=== PATIENT | male | born 1945 | race Hispanic/Latino ===

== ENCOUNTER 2017-04-20 18:35 | Inpatient (IN) | payer MEDICARE, OTHER ==
[~2017-04-20 18:35] MED LIST: ISOVUE-370 76%-LOCM 1 ML ONE
[2017-04-20 19:12] LABS: #Lymphocytes 0.9 thou/uL (1.20-3.40); #Monocytes 0.2 thou/uL (0.11-0.59); #Neutrophils 8.8 thou/uL (1.40-6.50); %Basophils 0.1 % (0.0-1.0); %Eosinophils 0.2 % (0.0-10.0); %Lymphocytes 9.3 % (21.0-51.0); %Monocytes 2.4 % (0.0-10.0); %Neutrophils 88.1 % (42.0-75.0); Hemoglobin 16.3 g/dL (14.0-18.0); Mean Corpuscular HGB CONC 32.1 g/dL (32.0-36.0); Mean Corpuscular Hemoglobin 32.1 pg (27.0-31.0); Mean Corpuscular Volume 99.8 fl (80.0-94.0); Mean Platelet Volume 6.7 fL (7.4-10.4); Platelet Count 355 thou/uL (130-400); RBC Distribution Width 13.1 % (11.5-14.5)
[2017-04-20 19:32] LABS: ALT (SGPT) 29 U/L (8-55); AST (SGOT) 21 U/L (5-34); Albumin 4.7 g/dL (3.4-4.8); Alkaline Phosphatase 60 U/L (40-150); Anion Gap 19 mmol/L (10-20); BUN (Urea Nitrogen) 14 mg/dL (8.4-25.7); Bilirubin, Total 0.5 mg/dL (0.2-1.2); Calc. Creatinine Clearance 0 mL/min (70-130); Calcium 9.9 mg/dL (7.8-10.44); Carbon Dioxide 22 mmol/L (23-31); Chloride 96 mmol/L (98-107); Estimated GFR-MDRD 73; Glucose 193 mg/dL (80-115); Potassium 3.7 mmol/L (3.5-5.1); Protein, Total 8.7 g/dL (5.8-8.1); Sodium 133 mmol/L (136-145)
[2017-04-20] MEDS ORDERED: Ondansetron HCl/PF 4 MG/2 ML Vial ONE (19:53)
--- NOTE | 2017-04-20 21:45 | CT ---
CT OF ABDOMEN AND PELVIS PERFORMED WITH INTRAVENOUS CONTRAST ENHANCEMENT: 04/20/17 HISTORY: Abdominal pain, constipation. The lung bases show subsegmental atelectatic change. There is a small hiatal hernia present. The live r shows no focal abnormality. Spleen is small. Pancreas and gallbladder regions are normal. Right and left adrenal glands and right and left kidneys are normal in size. There is no significantl y enlarged periaortic node. However, there is slightly more prominent aorotocaval and periaortic node s than typically seen. There is stool and fluid filled distention of the colon. This is to the level of the sigmoid where there is an area of abrupt transition to normal caliber sigmoid colon and enhanc ement to the wall in this region. On the lateral view this has an appearance of an apple core type le sions. No significant pelvic lymphadenopathy is seen. The bladder is distended. The prostate is somew hat enlarged. Fat containing bilateral inguinal hernias are noted. IMPRESSION: Findings very suspicious for an apple core type lesion so the sigmoid colon. This was associated with a partial obstruction through the colon with moderate distention proximal to this area within the si gmoid colon. Findings discussed with Dr. Palmer. Colonoscopy is recommended. POS: [facility]
[2017-04-20 21:57] LABS: Bilirubin Negative (Negative); Blood, Urine Trace (Negative); Clarity CLEAR (Clear); Glucose, Urine (Dipstick) 250 mg/dL (Negative); Leukocyte Negative (Negative); Nitrite Negative (Negative); Protein, Urine (Dipstick) Trace mg/dL (Neg-Trace); Urobilinogen 0.2 mg/dL (0.2-1.0)
[2017-04-20 21:59] LABS: Bacteria/HPF None Seen HPF (None Seen); Hyaline Casts/LPF 0-3 HYALINE CAST LPF (0-3 Hyaline); Pathc Cast-AUWi Flag 0.13 (0-2.49); Squamous Epithelial None Seen HPF (0-3); WBC/HPF None Seen HPF (0-3)
[2017-04-20] MEDS ORDERED: Ondansetron HCl/PF 4 MG/2 ML Vial IVP PRN (22:36)
[2017-04-20] MEDS ORDERED: Ondansetron ODT 4 MG TAB SL PRN (22:36)
[2017-04-20 23:08] LABS: Lactic Acid 1.7 mmol/L (0.5-2.2)
[2017-04-20] MEDS: Sodium Chloride 0.9% 1,000 ML IV SCH (23:16)
[2017-04-21] MEDS: hydrALAZINE 20 MG/ML VIAL SLOW IVP PRN ×2 (00:02→04:52)
[2017-04-21] MEDS ORDERED: Sodium Chloride 0.9% 500 ML IV SCH (09:00)
[2017-04-21] MEDS ORDERED: cefOXitin 2 GM in Sodium Chloride 0.9% 100 ML IVPB SCH ×2 (09:15→14:00)
[2017-04-21] MEDS: Sodium Chloride 0.9% 1,000 ML IV SCH ×3 (09:28→18:15)
[2017-04-21] MEDS ORDERED: Dexamethasone 4 mg/ml Vial ONE (10:10)
[2017-04-21] MEDS ORDERED: Ropivacaine 0.5% HCl/PF (150 MG/30 ML VIAL) ONE (10:10)
[2017-04-21] MEDS ORDERED: Fentanyl 100 MCG/2 ML VIAL ONE ×2 (10:18→10:23)
[2017-04-21] MEDS ORDERED: Midazolam HCl 2 mg/2 ml Vial ONE (10:23)
[2017-04-21] MEDS ORDERED: Albumin 5% 500 ML ONE (11:44)
[2017-04-21] MEDS ORDERED: Promethazine HCl 25 MG/ML VIAL IM PRN ×2 (12:22→14:32)
[2017-04-21] MEDS ORDERED: hydrALAZINE 20 MG/ML VIAL SLOW IVP PRN (12:22)
[2017-04-21] MEDS ORDERED: Ondansetron HCl/PF 4 MG/2 ML Vial IVP PRN ×2 (12:22→14:32)
[2017-04-21] MEDS ORDERED: cefOXitin 2 GM, Syringe 1 ML in Sterile Water 10 ML SLOW IVP SCH (14:00)
[2017-04-21 14:06] LABS: Folate (Folic Acid) 10.2 ng/mL (7.0-31.4)
--- NOTE | 2017-04-21 14:29 | HP ---
CHIEF COMPLAINT: Obstipation. HISTORY OF PRESENT ILLNESS: This is a 71-year-old male, who has had progressive constipation, eviden tly last month he was given some magnesium citrate. Over the last week, it has become much more lyssa re. He has not had a bowel movement in a week and he has not passed any flatus for the last 2 days. He started vomiting yesterday and came to the emergency room. He has never had a colonoscopy. He h as no family history of colon cancer and he denies any rectal bleeding. PAST MEDICAL HISTORY: Hypertension. PAST SURGICAL HISTORY: None. MEDICATIONS: Losartan, Viagra, simvastatin, and magnesium citrate. ALLERGIES: No known drug allergies. SOCIAL HISTORY: He is . 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 He smokes one-third pack per day. FAMILY HISTORY: Heart disease. PHYSICAL EXAMINATION: VITAL SIGNS: Temperature 98.0, pulse 116, blood pressure 143/74. GENERAL: He is awake and alert. He has an NG tube in. He has had about 200 mL out overnight. LUNGS: Clear. HEART: Regular rate and rhythm. ABDOMEN: Distended, tympanic. No significant tenderness. He has bilateral inguinal hernias that ar e reducible. EXTREMITIES: Unremarkable. LABORATORY AND X-RAY FINDINGS: White count 10, hemoglobin and hematocrit 16 and 50, and platelet cou nt 355. Electrolytes are fine. Elevated glucose of 193. CT scan shows an apple core lesion in the sigmoid colon with obstruction. ASSESSMENT: Obstructing mass sigmoid colon, worrisome for colon cancer. PLAN: Exploratory laparotomy, sigmoid colon resection, diverting colostomy.
[2017-04-21] MEDS ORDERED: Promethazine HCl 25 MG/ML VIAL SLOW IVP PRN (14:32)
[2017-04-21] MEDS ORDERED: PHENYLEPHRINE-NS 100 MCG/ML 10 ML SYRINGE ONE (14:40)
[2017-04-21] MEDS ORDERED: Ondansetron HCl/PF 4 MG/2 ML Vial ONE (14:40)
[2017-04-21] MEDS ORDERED: Esmolol 100 MG/10 ML VIAL ONE (14:40)
[2017-04-21] MEDS ORDERED: Glycopyrrolate 0.2 MG/ML 5 ML SYRINGE ONE (14:40)
[2017-04-21] MEDS ORDERED: Dexamethasone 20 MG/5 ML VIAL ONE (14:40)
[2017-04-21] MEDS ORDERED: PROPOFOL 200 MG/20 ML VIAL ONE (14:40)
[2017-04-21] MEDS ORDERED: Succinylcholine Chloride 20 MG/ML 10 ml SYRINGE FS ONE (14:40)
[2017-04-21] MEDS ORDERED: Lidocaine 1% PF 5 ML VIAL ONE (14:40)
[2017-04-21] MEDS ORDERED: Ketorolac Tromethamine 30 MG/ML VIAL ONE (14:40)
[2017-04-21] MEDS: Acetaminophen 1,000 MG in Premix Bag 1 BAG IVPB SCH (17:52)
[2017-04-21] MEDS: cefOXitin 2 GM, Syringe 1 ML in Sterile Water 10 ML SLOW IVP SCH (17:53)
[2017-04-21] MEDS: Ketorolac Tromethamine 30 MG/ML VIAL IVP SCH (17:53)
--- NOTE | 2017-04-21 19:13 | OP ---
PREOPERATIVE DIAGNOSIS: Obstructing apple core mass of the sigmoid colon. SURGEON: Cem Saba M.D. PROCEDURE PERFORMED: Exploratory laparotomy, sigmoid colectomy with end colostomy and Yolanda's. INDICATIONS: Patient is a 71-year-old male with several month history of progressive constipation wh o did developed obstipation over the last 2 days, associated with nausea and vomiting. CT scan showe d an apple core obstructing lesion in the sigmoid colon. FINDINGS: Obstructing apple core lesion consistent with colon cancer. No evidence of metastatic dis ease. PROCEDURE: On an urgent basis, the patient was given IV antibiotics, taken to the operating room whe re he underwent exploratory laparotomy. He was found to have this obstructing mass in the mid sigmoi d colon. PROCEDURE: After informed consent was obtained, patient was taken to the operating room and given IV antibiotics, where his abdomen was prepped and draped in the usual fashion. A midline incision was performed. The subcu divided sharply. The fascia incised with a 10 blade. The peritoneum opened an d the abdomen explored. There was a mass that was palpable in the sigmoid colon, it was not fixed an ything. This retraction was achieved utilizing the Bookwalter retractor. The white line of Toldt wa s mobilized laterally. The sigmoid colon was mobilized. The distal colon was divided utilizing a GI A, then proximally was divided with a NORA. The mesentery divided with a LigaSure. The superior rect al vessels were ligated with 2-0 Vicryl suture ties. The specimen sent to pathology for further anal ysis. The distal colon was marked with 2-0 Prolene sutures tied on the ends of the staple line to leila holland for further reference. Hemostasis assured with electrocautery as well as stick ties. The abdomen thoroughly irrigated and irrigation fluid removed. The liver was palpated. There was no evidence o f metastatic disease. The skin was grasped with a Camilo clamp midway between the anterior superior iliac spine in the umbilicus. A circular skin incision excised on the left side of the abdomen. The abdominal wall fat was also excised. The fascia was scored in a cruciate manner and dilated digital ly to 4 fingers. Then the colon was brought through this opening and secured to the posterior fascia with interrupted 3-0 Vicryl sutures and then once again hemostasis assured. The abdominal fascia cl osed with a running looped #1 PDS. The subcutaneous irrigated. The skin then closed in the midline with skin garrison. This was then protected with drapes and the colostomy was then dealt with. The c olon was also attached to the anterior fascia with interrupted 3-0 Vicryls. Then, the staple line wa s excised and the colostomy matured with interrupted 3-0 Vicryl sutures. A wafer was applied as well as a bag. The abdominal wound dressed with gauze and tape. The patient tolerated the procedure wel l and transferred to recovery in good condition.
[2017-04-21] MEDS: Famotidine 20 MG TAB PO SCH (19:53)
--- NOTE | 2017-04-21 20:19 | HP ---
DATE OF ADMISSION: 04/21/2017 HISTORY OF PRESENT ILLNESS: This is a 71-year-old Latin-Scottish male with history of alcohol and to bacco abuse. being admitted for abdominal pain. The patient has been followed by myself for several years. He has a history of hyponatremia felt attributed to potomania. The patient does have a half pack per day tobacco history for many years as well as a history of alcohol abuse. He states he drin ks approximately 4 beers per day. He was doing well until approximately 1 week ago, he began develop ed some abdominal discomfort. About 2 days ago, he began developing abdominal distention with nausea and some vomiting. He was eating prior to this; however, he has been unable to eat or drink anythin g at this time. He complains of increasing abdominal pain, bloating, nausea and vomiting without bow el movements over the past 2 days. He then presented to the ER for further evaluation. A CT scan of his abdomen was performed, which revealed most likely apple core type lesion of the sigmoid colon. He has been evaluated by Dr. Saba and is planning to have a bowel resection with a colostomy placeme . PAST MEDICAL HISTORY: 1. 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 2. Tobacco abuse about a half pack per day, alcohol abuse, erectile dysfunction, hypertension, prost atitis followed up by Dr. Gamble with an elevated PSA. PAST SURGICAL HISTORY: Prostate biopsy negative, Dr. Gamble 2014. FAMILY HISTORY: Father at 75 with congestive heart failure and heart disease. Mother pa ssed away at 89 of old age. He does have alcohol one son, one daughter, two brothers, two sisters. SOCIAL HISTORY: He drinks approximately 4 beers per day. He is presently retired, . He live s with his girlfriend at this time. He does smoke less than half pack per day for 40+ years. He devlin s have 2 kids, 6 grand, 4 great grand. MEDICATIONS: Losartan 100 mg daily, simvastatin 40 daily, Viagra 100 p.r.n. ALLERGIES: None. REVIEW OF SYSTEMS: As above. PHYSICAL EXAMINATION: VITAL SIGNS: Temperature 98.0, pulse 116, respirations 20, pulse ox 95, blood pressure 143/74. GENERAL: In mild to moderate distress or abdominal discomfort. Otherwise, looks good. HEENT: Clear. HEART: Regular rate and rhythm, slightly tachycardic. LUNGS: Clear. ABDOMEN: Mild diffuse tenderness, somewhat firm and distended. EXTREMITIES: With no edema. LABORATORY AND X-RAY FINDINGS: White count 10.0, H and H 16 and 50, platelets 355. Sodium 133, pota ssium 3.7, creatinine 1.01, BUN 14. Blood sugar 193. CEA 19, albumin 4.7. Urine, 7-10 rbc's. ASSESSMENT: 1. Sigmoid colon mass, most likely adenocarcinoma. Dr. [facility] 2. Long tobacco history. 3. Long alcohol history. 4. Chronic hyponatremia. 5. Patient has refused for many years to obtain a colonoscopy. He is also well aware of his excessi ve tobacco and alcohol use. PLAN: 1. We will continue to monitor his electrolytes. 2. Observe for DT's. 3. Continue to on awake counselor on tobacco and alcohol. 4. Daily multivitamins as well as thiamine and B12. 5. We will continue to follow.
[2017-04-21] MEDS: Multivitamins, Adult 10 ML, Folic Acid 1 MG, Thiamine HCl 100 MG in Dextrose 5 %-0.45 %... IV SCH (20:40)
[2017-04-21] MEDS: Famotidine/PF 20 mg/2ml Vial SLOW IVP SCH (21:54)
[2017-04-22] MEDS: Acetaminophen 1,000 MG in Premix Bag 1 BAG IVPB SCH ×3 (00:39→12:26)
[2017-04-22] MEDS: Ketorolac Tromethamine 30 MG/ML VIAL IVP SCH ×4 (00:39→18:30)
[2017-04-22] MEDS: Sodium Chloride 0.9% 1,000 ML IV SCH ×3 (00:48→18:32)
[2017-04-22] MEDS: cefOXitin 2 GM, Syringe 1 ML in Sterile Water 10 ML SLOW IVP SCH (02:53)
[2017-04-22 04:40] LABS: #Lymphocytes 1.6 thou/uL (1.20-3.40); #Neutrophils 9.6 thou/uL (1.40-6.50); %Basophils 0.2 % (0.0-1.0); %Eosinophils 0.1 % (0.0-10.0); %Lymphocytes 12.8 % (21.0-51.0); %Monocytes 8.4 % (0.0-10.0); %Neutrophils 78.5 % (42.0-75.0); Mean Corpuscular HGB CONC 33.4 g/dL (32.0-36.0); Mean Corpuscular Hemoglobin 33.3 pg (27.0-31.0); Mean Corpuscular Volume 99.6 fl (80.0-94.0); Mean Platelet Volume 6.7 fL (7.4-10.4); Platelet Count 270 thou/uL (130-400); RBC Distribution Width 13.2 % (11.5-14.5); White Blood Cell (WBC) Count 12.2 thou/uL (4.8-10.8)
[2017-04-22 05:33] LABS: ALT (SGPT) 18 U/L (8-55); AST (SGOT) 21 U/L (5-34); Albumin 3.8 g/dL (3.4-4.8); Alkaline Phosphatase 31 U/L (40-150); Anion Gap 7 mmol/L (10-20); BUN (Urea Nitrogen) 16 mg/dL (8.4-25.7); Calc. Creatinine Clearance 60 mL/min (70-130); Calcium 8.5 mg/dL (7.8-10.44); Carbon Dioxide 28 mmol/L (23-31); Chloride 104 mmol/L (98-107); Estimated GFR-MDRD 66; Globulin 2.4 g/dL (2.4-3.5); Glucose 145 mg/dL (80-115); Protein, Total 6.2 g/dL (5.8-8.1); Sodium 135 mmol/L (136-145)
[2017-04-22] MEDS ORDERED: Lorazepam 2 MG/ML VIAL SLOW IVP PRN (08:13)
--- NOTE | 2017-04-22 08:33 | PRG ---
DATE OF SERVICE: 04/22/2017 SUBJECTIVE: The patient is postoperative day #1 status post sigmoid mass resection by Dr. Saba with a colostomy placement. The patient this morning is doing well. OBJECTIVE: VITAL SIGNS: Temperature 98.3, pulse 92, respirations 16, pulse ox 97, blood pressure 138/66. HEART: Regular rate and rhythm. LUNGS: Clear. ABDOMEN: Soft. EXTREMITIES: With no edema. LABORATORY: White count 12.2, H&H of 12 and 35. Sodium 135, potassium 4.0, creatinine 1.11, BUN 16, blood sugar 145. ASSESSMENT: 1. Postop day #1, status post sigmoid mass resection and colostomy placement. 2. Tobacco and alcohol history. 3. Chronic hyponatremia. PLAN: 1. Continue to follow. 2. Add a nicotine patch. 3. Continue with vitamins daily.
[2017-04-22] MEDS ORDERED: Enoxaparin Sodium 40 MG/0.4 ML SYRINGE SC SCH (09:00)
[2017-04-22] MEDS: Famotidine 20 MG TAB PO SCH ×2 (09:05→21:07)
[2017-04-22] MEDS: Famotidine/PF 20 mg/2ml Vial SLOW IVP SCH ×2 (09:05→21:08)
[2017-04-22] MEDS: Nicotine 14 MG PATCH TD SCH (09:06)
[2017-04-22] MEDS: Enoxaparin Sodium 40 MG/0.4 ML SYRINGE SC SCH (09:41)
[2017-04-22 13:04] VITALS: BMI 24.6
[2017-04-22] MEDS: Multivitamins, Adult 10 ML, Folic Acid 1 MG, Thiamine HCl 100 MG in Dextrose 5 %-0.45 %... IV SCH (14:11)
[2017-04-22] MEDS ORDERED: Morphine 5 MG/ML SYRINGE SLOW IVP PRN (16:05)
[2017-04-23] MEDS: Ketorolac Tromethamine 30 MG/ML VIAL IVP SCH ×5 (00:15→23:52)
[2017-04-23] MEDS: Sodium Chloride 0.9% 1,000 ML IV SCH ×2 (00:16→08:33)
[2017-04-23 04:54] LABS: #Basophils 0.2 thou/uL (0.0-0.2); #Eosinphils 0.2 thou/uL (0.0-0.7); #Lymphocytes 1.6 thou/uL (1.20-3.40); #Monocytes 0.9 thou/uL (0.11-0.59); #Neutrophils 6.6 thou/uL (1.40-6.50); %Basophils 1.6 % (0.0-1.0); %Eosinophils 2.6 % (0.0-10.0); %Lymphocytes 16.6 % (21.0-51.0); %Monocytes 9.8 % (0.0-10.0); %Neutrophils 69.5 % (42.0-75.0); Hemoglobin 12.1 g/dL (14.0-18.0); Mean Corpuscular Hemoglobin 33.1 pg (27.0-31.0); Mean Platelet Volume 6.8 fL (7.4-10.4); Platelet Count 261 thou/uL (130-400); RBC Distribution Width 12.9 % (11.5-14.5); Red Blood Cell (RBC) Count 3.66 mill/uL (4.70-6.10); White Blood Cell (WBC) Count 9.5 thou/uL (4.8-10.8)
[2017-04-23] MEDS: Nicotine 14 MG PATCH TD SCH (08:26)
[2017-04-23] MEDS: Famotidine 20 MG TAB PO SCH ×2 (08:30→20:24)
[2017-04-23] MEDS: Famotidine/PF 20 mg/2ml Vial SLOW IVP SCH ×2 (08:30→20:25)
--- NOTE | 2017-04-23 08:48 | PRG ---
DATE OF SERVICE: 04/23/2017 SUBJECTIVE: The patient is tolerating clear liquids. His diet has been advanced to full liquid toda y. Positive flatus. OBJECTIVE: VITAL SIGNS: Blood pressure 164/90, pulse 102, temperature 98.8, respirations 20, pulse ox 95. HEART: Regular rate and rhythm. LUNGS: Clear. ABDOMEN: Soft. Bowel sounds present. LABORATORY DATA: White count 9.5, H and H 12 and 36. Sodium 135, potassium 4.0. ASSESSMENT: 1. Postoperative day #2 status post sigmoid mass resection and colostomy placement. 2. Tobacco and alcohol history. 3. Chronic hyponatremia. 4. Elevated blood pressure. PLAN: 1. Advance diet to a full liquid today. 2. Patient has a nicotine patch present. 3. We will add an antihypertensive. 4. Recheck CBC and BMP in the a.m.
[2017-04-23] MEDS ORDERED: cloNIDine 0.2mg/24 Hour PATCH TD SCH (09:00)
[2017-04-23 09:21] LABS: Anion Gap 13 mmol/L (10-20); BUN (Urea Nitrogen) 11 mg/dL (8.4-25.7); Calc. Creatinine Clearance 87 mL/min (70-130); Calcium 8.5 mg/dL (7.8-10.44); Carbon Dioxide 21 mmol/L (23-31); Chloride 99 mmol/L (98-107); Estimated GFR-MDRD Greater than 90; Glucose 96 mg/dL (80-115); Sodium 129 mmol/L (136-145)
[2017-04-23] MEDS: Enoxaparin Sodium 40 MG/0.4 ML SYRINGE SC SCH (10:11)
[2017-04-23] MEDS: Multivitamins, Adult 10 ML, Folic Acid 1 MG, Thiamine HCl 100 MG in Dextrose 5 %-0.45 %... IV SCH (14:30)
[2017-04-23] MEDS: Multivitamins, Adult 10 ML, Thiamine HCl 100 MG, Folic Acid 1 MG in Dextrose 5 %-0.45 %... IV SCH (16:46)
[2017-04-23] MEDS ORDERED: HYDROcodone/Acetaminophen 10/325 mg Tablet PO PRN (18:10)
[2017-04-23] MEDS: HYDROcodone/Acetaminophen 10/325 mg Tablet PO PRN (18:13)
[2017-04-24] MEDS: Ketorolac Tromethamine 30 MG/ML VIAL IVP SCH ×3 (05:34→18:21)
--- NOTE | 2017-04-24 08:17 | PRG ---
DATE OF SERVICE: 04/24/2017 SUBJECTIVE: The patient continues to do well. Ambulating in the hallways. Tolerating a full liquid diet. OBJECTIVE: VITAL SIGNS: Temperature 98.8, pulse 79, respirations 22, pulse ox 96, blood pressure 126/73. LUNGS: Clear. ABDOMEN: Soft. Ostomy intact. EXTREMITIES: With no edema. LABORATORY DATA: Labs are stable. Sodium was 129 as of yesterday. ASSESSMENT: 1. Postoperative day #3, status post sigmoid mass resection and colostomy placement. 2. Tobacco and alcohol history. 3. Chronic hyponatremia. 4. Elevated blood pressure. PLAN: 1. Suspect Dr. Saba will advance the diet. 2. Nicotine patch. 3. Recheck CBC and BMP in the a.m. 4. Fluid restrict to 1200 mL.
[2017-04-24 08:44] LABS: Anion Gap 9 mmol/L (10-20); BUN (Urea Nitrogen) 14 mg/dL (8.4-25.7); Calc. Creatinine Clearance 82 mL/min (70-130); Calcium 8.3 mg/dL (7.8-10.44); Carbon Dioxide 25 mmol/L (23-31); Chloride 96 mmol/L (98-107); Estimated GFR-MDRD Greater than 90; Glucose 102 mg/dL (80-115); Potassium 3.8 mmol/L (3.5-5.1); Sodium 126 mmol/L (136-145)
[2017-04-24] MEDS: Famotidine/PF 20 mg/2ml Vial SLOW IVP SCH ×2 (08:44→20:40)
[2017-04-24] MEDS: Famotidine 20 MG TAB PO SCH ×2 (08:44→20:39)
[2017-04-24] MEDS: Nicotine 14 MG PATCH TD SCH (08:45)
[2017-04-24] MEDS: Enoxaparin Sodium 40 MG/0.4 ML SYRINGE SC SCH (11:09)
[2017-04-24] MEDS: Multivitamins, Adult 10 ML, Thiamine HCl 100 MG, Folic Acid 1 MG in Dextrose 5 %-0.45 %... IV SCH (18:21)
[2017-04-25] MEDS: HYDROcodone/Acetaminophen 10/325 mg Tablet PO PRN (05:44)
[2017-04-25] MEDS: Enoxaparin Sodium 40 MG/0.4 ML SYRINGE SC SCH (08:21)
[2017-04-25] MEDS: Famotidine 20 MG TAB PO SCH ×2 (08:21→21:27)
[2017-04-25] MEDS: Famotidine/PF 20 mg/2ml Vial SLOW IVP SCH ×2 (08:23→22:17)
[2017-04-25] MEDS: Nicotine 14 MG PATCH TD SCH (08:23)
--- NOTE | 2017-04-25 08:34 | PRG ---
DATE OF SERVICE: 04/25/2017 SUBJECTIVE: The patient is doing well, tolerating a full liquid diet. No nausea or vomiting. Ready to eat a regular diet. OBJECTIVE: VITAL SIGNS: Temperature 98.5, pulse 59, respirations 18, pulse ox 97, blood pressure 111/67. HEART: Regular rate and rhythm. LUNGS: Clear. ABDOMEN: Soft, normal bowel sounds, positive flatus. LABORATORY: White count 9.5, H&H 12 and 36 yesterday. Sodium 126, potassium 3.8. ASSESSMENT: 1. Postop day #4, status post sigmoid mass resection and colostomy placement. 2. Tobacco and alcohol history. 3. Chronic hyponatremia. 4. Elevated blood pressure. PLAN: 1. Will reinforce fluid restriction with patient. 2. Check BNP today. 3. Nicotine patch. 4. Recheck BMP in the a.m.
[2017-04-25 09:11] LABS: Anion Gap 6 mmol/L (10-20); BUN (Urea Nitrogen) 12 mg/dL (8.4-25.7); Calc. Creatinine Clearance 79 mL/min (70-130); Calcium 8.4 mg/dL (7.8-10.44); Carbon Dioxide 28 mmol/L (23-31); Chloride 97 mmol/L (98-107); Estimated GFR-MDRD Greater than 90; Glucose 101 mg/dL (80-115); Potassium 4.3 mmol/L (3.5-5.1); Sodium 127 mmol/L (136-145)
[2017-04-26] MEDS: Enoxaparin Sodium 40 MG/0.4 ML SYRINGE SC SCH (08:18)
[2017-04-26] MEDS: Famotidine 20 MG TAB PO SCH (08:19)
[2017-04-26] MEDS: Nicotine 14 MG PATCH TD SCH (08:19)
[2017-04-26] MEDS: Famotidine/PF 20 mg/2ml Vial SLOW IVP SCH (08:19)
--- NOTE | 2017-04-26 08:21 | PRG ---
DATE OF SERVICE: 04/26/2017 SUBJECTIVE: The patient is doing well. Tolerating a regular diet. He is ready for discharge. OBJECTIVE: VITAL SIGNS: Temperature 98.7, pulse 67, respirations 16, pulse ox 97, blood pressure 135/75. HEART: Regular rate and rhythm. LUNGS: Clear. ABDOMEN: Soft, normal bowel sounds. Ostomy intact. LABORATORY: The latest sodium was 127 yesterday. Discharge H&H is 12 and 36. ASSESSMENT: 1. Postop day #5, status post sigmoid mass resection and colostomy placement. 2. Tobacco and alcohol history. 3. Chronic hyponatremia/potomania. 4. Elevated blood pressure, resolved. PLAN: 1. From my standpoint, the patient can be discharged. 2. Follow up with myself in 1 week. 3. Follow up with Dr. Leong in 1 week. 4. Fluid restriction discussed with the patient upon discharge. 5. Resume home medications.
--- NOTE | 2017-04-26 12:22 | DIS ---
DISCHARGE DIAGNOSIS: T4 N0 M0 obstructing colon cancer. PROCEDURES DURING ADMISSION: CT scan of abdomen, exploratory laparotomy with sigmoid colon resection , end colostomy and Yolanda's procedure. HOSPITAL COURSE: The patient was admitted, taken to the operating room where a CT scan showed an obs tructing mass in the sigmoid colon. His preoperative CEA was 19.7. They saw no evidence of metastat ic disease on the CT scan. He underwent exploratory laparotomy, again he was not found to have any o bvious metastatic disease. He underwent a sigmoid colon resection with end colostomy. The pathology came back T4 as it went to the serosa, margins negative, lymph nodes negative. His bowel function r eturned. He is tolerating a regular diet. He has had teaching. He will follow up with me in 1 week for staple removal.
[2017-04-26 12:42] VITALS: BP 118/71; TEMP 98
--- NOTE | 2017-05-01 10:52 | EKG ---
Test Reason : Blood Pressure : / mmHG Vent. Rate : 112 BPM Atrial Rate : 112 BPM P-R Int : 164 ms QRS Dur : 074 ms QT Int : 322 ms P-R-T Axes : 031 000 011 degrees QTc Int : 439 ms Sinus tachycardia Otherwise normal ECG No previous ECGs available Confirmed by ANDRE SMILEY ([id number]) on 05/01/2017 10:51:54 AM Referred By: KATHY Confirmed By:ANDRE SMILEY
== END 2017-04-26 13:51 | disposition home or self-care (01) | DRG 330 ==
LOC: ERS 18:35 → SURG A 22:37
PROVIDERS: ADMIT Surgery; ATTEND Surgery
PROC: 0DBN0ZZ Excision of Sigmoid Colon, Open Approach (ICD-10-PCS; principal; 2017-04-21)
PROC: 0D1M0Z4 Bypass Descending Colon to Cutaneous, Open Approach (ICD-10-PCS; 2017-04-21)
PROC: 3E0T3BZ Introduction of Anesthetic Agent into Peripheral Nerves and Plexi, Percutaneous Approach (ICD-10-PCS; 2017-04-21)
PROC: 3E0T33Z Introduction of Anti-inflammatory into Peripheral Nerves and Plexi, Percutaneous Approach (ICD-10-PCS; 2017-04-21)
DX: C18.7 Malignant neoplasm of sigmoid colon (principal); E87.1 Hypo-osmolality and hyponatremia; F10.10 Alcohol abuse, uncomplicated; F17.210 Nicotine dependence, cigarettes, uncomplicated; N52.9 Male erectile dysfunction, unspecified; I10 Essential (primary) hypertension
CPT/HCPCS: 36415; 36416; 74177; 80048; 80053; 81003; 81015; 82378; 82607; 82746; 83605; 84425; 85025; 88309; 93005; 93010; 96361; 96374; J2270; A4216; J0131; J0360; J0694; J1100; J1650; J1885; J2001; J2250; J2405; J2704; J2795; J3010; J3411; J7042; J7050; P9045; S0028

== ENCOUNTER 2017-06-12 10:00 | Outpatient (CLI) | payer MEDICARE ==
[2017-06-12 11:20] LABS: CEA, Serum 3.23 ng/mL (< or = 5.0)
[2017-06-12 11:21] LABS: PSA-Symptomatic (DIAGNOSTIC) 4.04 ng/mL (0-4.0)
[2017-06-12 11:45] LABS: Band 1 % (5-11); Eosinophils 6 % (0-10); Hemoglobin 13.9 g/dL (14.0-18.0); Lymphocytes 65 % (21-51); MDiff Complete? YES; Mean Corpuscular HGB CONC 32.9 g/dL (32.0-36.0); Mean Platelet Volume 6.8 fL (7.4-10.4); Monocytes 4 % (0-10); Neutrophil 24 % (42-75); Platelet Count 287 thou/uL (130-400); RBC Distribution Width 13.5 % (11.5-14.5); RBC Morphology Normal; Red Blood Cell (RBC) Count 4.21 mill/uL (4.70-6.10); White Blood Cell (WBC) Count 4.9 thou/uL (4.8-10.8)
[2017-06-12 15:50] LABS: ALT (SGPT) 43 U/L (8-55); AST (SGOT) 28 U/L (5-34); Albumin 4.3 g/dL (3.4-4.8); Alkaline Phosphatase 54 U/L (40-150); Anion Gap 12 mmol/L (10-20); BUN (Urea Nitrogen) 9 mg/dL (8.4-25.7); Bilirubin, Total 0.6 mg/dL (0.2-1.2); Calc. Creatinine Clearance 0 mL/min (70-130); Calcium 9.5 mg/dL (7.8-10.44); Carbon Dioxide 27 mmol/L (23-31); Chloride 102 mmol/L (98-107); Estimated GFR-MDRD 69; Globulin 2.9 g/dL (2.4-3.5); Glucose 108 mg/dL (80-115); Protein, Total 7.2 g/dL (5.8-8.1); Sodium 137 mmol/L (136-145)
[2017-06-12 15:53] LABS: Uric Acid 3.8 mg/dL (3.5-7.2)
== END 2017-06-12 10:01 | disposition home or self-care (01) ==
LOC: LABBT 10:00
PROVIDERS: ATTEND Surgery
DX: Z01.818 Encounter for other preprocedural examination (principal); C18.7 Malignant neoplasm of sigmoid colon
CPT/HCPCS: 80053; 82378; 83615; 84153; 84550; 85025; 93005; 93010

== ENCOUNTER 2017-06-14 09:09 | Day surgery (SDC) | payer MEDICARE ==
[2017-06-11 11:45] VITALS: BMI 24.3
[2017-06-14] MEDS ORDERED: Bupivacaine/Epinephrine 0.25% 30 ML VIAL ONE (10:12)
[2017-06-14] MEDS ORDERED: CEFAZOLIN/Water 2 GM/20 ML SYRINGE ONE (10:13)
[2017-06-14] MEDS ORDERED: Ketamine 50 MG/ML VIAL ONE (10:57)
[2017-06-14] MEDS ORDERED: Propofol 500 MG/50 ML VIAL ONE (10:57)
[2017-06-14] MEDS ORDERED: Fentanyl 100 MCG/2 ML VIAL ONE (10:57)
[2017-06-14] MEDS ORDERED: Midazolam HCl 2 mg/2 ml Vial ONE (10:57)
--- NOTE | 2017-06-14 12:47 | OP ---
PREOPERATIVE DIAGNOSIS: Advanced colon cancer. SURGEON: Cem Saba M.D. PROCEDURE PERFORMED: MediPort placement. INDICATIONS: The patient is a 71-year-old male who needs chemotherapy for acute colon cancer. FINDINGS: Good back flow of venous blood. J-wire threaded easily. Fluoroscopy confirmed placement in the left subclavian vein. PROCEDURE: After informed consent was obtained, the patient was taken to the operating room and give n general mask anesthesia. He was placed in the supine position and his chest and neck were prepped and draped in usual fashion. Local anesthesia infiltrated subcutaneously and deep, and an introducer needle was inserted in left subclavian with good backflow of venous blood. J-wire was threaded easi ly. Fluoroscopy was used to confirm placement of the wire in the superior vena cava. Then, the skin and subcutaneous anesthetized and a transverse chest wall incision was performed. The subcu divided sharply. A pocket was created using electrocautery on the pectoralis fascia. Then, the tunneling d evice was used to create a tunnel and the catheter brought through the tunnel between the chest incis ion and where the wire was coming out. Then, this catheter was attached to the MediPort and the Medi Port secured to the pectoralis fascia with interrupted 2-0 Prolene suture. The system was accessed w ith Esparza needle and flushed with heparinized saline. The catheter was cut to size and the peel-away introducer inserted over the wire. The wire was removed and the catheter inserted through the peel- away introducer then the peel-away introducer removed. Fluoroscopy again used showed good placement of the catheter in the superior vena cava, no kinks. The system accessed with a Esparza needle. Good backflow of venous blood, flushed with heparinized saline. The subcu was reapproximated with interru pted 3-0 Vicryl and skin closed with a running subcuticular 4-0 Rapide. Dermabond applied. The manoj ent tolerated the procedure well and was transferred to recovery in good condition. Sponge and needl e count verified correct x2.
--- NOTE | 2017-06-14 13:21 | RAD ---
CHEST ONE VIEW: HISTORY: A 71-year-old male, status post Mediport catheter placement. FINDINGS: Left subclavian catheter and injection port in place, with the tip in the superior vena cava. No pne umothorax or pleural effusion. Healed right rib fractures. Heart size is normal. IMPRESSION: 1. No active intrathoracic disease. 2. Left subclavian catheter and injection port without complication.. POS: [facility]
== END 2017-06-14 12:50 | disposition home or self-care (01) ==
LOC: SDC 09:09
PROVIDERS: ATTEND Surgery
PROC: 02HV33Z Insertion of Infusion Device into Superior Vena Cava, Percutaneous Approach (ICD-10-PCS; principal; 2017-06-14)
DX: C18.7 Malignant neoplasm of sigmoid colon (principal); F17.210 Nicotine dependence, cigarettes, uncomplicated; N52.9 Male erectile dysfunction, unspecified; I10 Essential (primary) hypertension; N41.9 Inflammatory disease of prostate, unspecified; F10.10 Alcohol abuse, uncomplicated; Z90.49 Acquired absence of other specified parts of digestive tract; Z98.890 Other specified postprocedural states; Z93.3 Colostomy status
CPT/HCPCS: 36561; 71045; C1788; J1642; J2250; J2704; J3010

== ENCOUNTER 2017-07-30 10:00 | Inpatient (IN) | payer MEDICARE ==
[2017-08-06] MEDS ORDERED: cefOXitin 2 GM in Sodium Chloride 0.9% 100 ML IVPB SCH (06:30)
[2017-08-06] MEDS ORDERED: Fentanyl 250 MCG/5 ML VIAL ONE (07:02)
[2017-08-06] MEDS ORDERED: Ondansetron HCl/PF 4 MG/2 ML Vial IVP PRN ×3 (08:37→09:47)
[2017-08-06] MEDS ORDERED: Promethazine HCl 25 MG/ML VIAL IM PRN ×3 (08:37→09:47)
[2017-08-06] MEDS ORDERED: cefOXitin 2 GM VIAL ONE (08:37)
[2017-08-06] MEDS ORDERED: Promethazine HCl 25 MG/ML VIAL SLOW IVP PRN (08:37)
[2017-08-06] MEDS ORDERED: hydrALAZINE 20 MG/ML VIAL SLOW IVP PRN (09:29)
[2017-08-06] MEDS ORDERED: Fentanyl 100 MCG/2 ML VIAL ONE ×3 (09:38→10:11)
--- NOTE | 2017-08-06 09:40 | OP ---
PREOPERATIVE DIAGNOSIS: Undesired sigmoid colostomy. SURGEON: Cem Saba M.D. TRAFFIC LIEUTENANT: Magali Bill, certified veterinary technician. PROCEDURE PERFORMED: Colostomy reversal. INDICATIONS: This is a 71-year-old male who had had an emergency colostomy and sigmoid colectomy for perforated colon cancer obstructing. FINDINGS: He had moderate adhesions. No evidence of residual tumor in the abdominal cavity. PROCEDURE IN DETAIL: After informed consent was obtained, patient was taken to the operating room an d given general endotracheal anesthesia. He was placed in lithotomy position. He has undergone [facility] anical bowel prep at home. To start off, we did a pursestring of #1 silk circumferentially around th e ostomy site to close it off. Then his abdomen was prepped and draped in usual fashion. A midline incision was performed through the old scar. Subcu divided sharply. The fascia incised. A lysis of adhesions was performed. Then, retraction was achieved with a Bookwalter retractor and further lysi s of adhesions was performed to define the distal colon and rectum. These were dissected out. Then an elliptical incision was performed around the ostomy site and the ostomy was dissected out using bl unt and sharp dissection. Then, the distal staple line was excised and then the ostomy was excised. A single layer handsewn anastomosis was performed. Posterior layer was done with interrupted 3-0 Vi cryl suture. Then the anterior layer was done with interrupted 3-0 Vicryl. Then, the anastomosis wa s tested by occluding the proximal descending colon and inflating the rectum and anastomosis with air through a proctoscope underwater, there was no air leak. The irrigation fluid was removed. Hemosta sis assured. Gowns and gloves were changed. Then, the posterior ostomy site fascia was closed with a running #1 PDS. Hemostasis assured and both incisions were pulse irrigated. The midline fascia wa s closed with running looped #1 PDS. Then the anterior layer was closed with a #1 PDS. The hemostas is assured and the skin closed with skin garrison. Patient tolerated the procedure well and was trans ferred to recovery in good condition. Sponge and needle count verified correct x2.
[2017-08-06] MEDS ORDERED: diphenhydrAMINE 50 MG/ML VIAL IVP PRN (09:47)
[2017-08-06] MEDS ORDERED: Zolpidem Tartrate 5 MG TAB PO PRN (09:47)
[2017-08-06] MEDS ORDERED: diphenhydrAMINE 50 MG/ML VIAL IM PRN (09:47)
[2017-08-06] MEDS ORDERED: Naloxone HCl 0.4 mg/ml Vial IV PRN (09:47)
[2017-08-06] MEDS ORDERED: Ketorolac Tromethamine 30 MG/ML VIAL IVP PRN (09:47)
[2017-08-06] MEDS ORDERED: Fentanyl 5000 MCG/250 ML CADD IVPB PRN (09:47)
[2017-08-06] MEDS ORDERED: Communication Order-Pharmacy FS SCH (10:00)
[2017-08-06] MEDS ORDERED: fentaNYL Citrate/PF 2,000 MCG in Sodium Chloride 0.9% 60 ML IV PRN (10:00)
[2017-08-06] MEDS ORDERED: Esmolol 100 MG/10 ML VIAL ONE (11:12)
[2017-08-06] MEDS ORDERED: Glycopyrrolate 0.2 MG/ML 5 ML SYRINGE ONE (11:12)
[2017-08-06] MEDS ORDERED: PROPOFOL 200 MG/20 ML VIAL ONE (11:12)
[2017-08-06] MEDS ORDERED: Ketorolac Tromethamine 30 MG/ML VIAL ONE (11:12)
[2017-08-06] MEDS ORDERED: Lidocaine 1% PF 5 ML VIAL ONE (11:12)
[2017-08-06] MEDS ORDERED: Ondansetron HCl/PF 4 MG/2 ML Vial ONE (11:12)
[2017-08-06] MEDS: Ketorolac Tromethamine 30 MG/ML VIAL IVP SCH ×2 (11:47→18:21)
[2017-08-06] MEDS: Acetaminophen 1,000 MG in Premix Bag 1 BAG IVPB SCH ×2 (11:48→18:21)
[2017-08-06 14:40] VITALS: BMI 25.1
[2017-08-06] MEDS: Sodium Chloride 0.9% 1,000 ML IV SCH ×2 (16:51→18:21)
[2017-08-06] MEDS: cefOXitin 2 GM in Sodium Chloride 0.9% 100 ML IVPB SCH (16:52)
[2017-08-06] MEDS: Famotidine/PF 20 mg/2ml Vial SLOW IVP SCH (20:10)
[2017-08-06] MEDS: Famotidine 20 MG TAB PO SCH (20:11)
[2017-08-07] MEDS: Acetaminophen 1,000 MG in Premix Bag 1 BAG IVPB SCH ×2 (00:19→06:35)
[2017-08-07] MEDS: Ketorolac Tromethamine 30 MG/ML VIAL IVP SCH ×5 (00:19→23:18)
[2017-08-07] MEDS: cefOXitin 2 GM in Sodium Chloride 0.9% 100 ML IVPB SCH (00:20)
[2017-08-07] MEDS: Sodium Chloride 0.9% 1,000 ML IV SCH ×4 (04:29→20:51)
[2017-08-07 05:20] LABS: Anion Gap 10 mmol/L (10-20); BUN (Urea Nitrogen) 14 mg/dL (8.4-25.7); Calc. Creatinine Clearance 63 mL/min (70-130); Calcium 8.3 mg/dL (7.8-10.44); Carbon Dioxide 20 mmol/L (23-31); Chloride 108 mmol/L (98-107); Estimated GFR-MDRD 68; Glucose 93 mg/dL (80-115); Sodium 134 mmol/L (136-145)
[2017-08-07 05:39] LABS: Band 6 % (5-11); Eosinophils 10 % (0-10); Hemoglobin 13.1 g/dL (14.0-18.0); Lymphocytes 40 % (21-51); MDiff Complete? YES; Mean Corpuscular HGB CONC 33.5 g/dL (32.0-36.0); Mean Corpuscular Hemoglobin 33.2 pg (27.0-31.0); Mean Corpuscular Volume 99.2 fl (80.0-94.0); Monocytes 26 % (0-10); Neutrophil 18 % (42-75); Platelet Count 238 thou/uL (130-400); Red Blood Cell (RBC) Count 3.95 mill/uL (4.70-6.10); White Blood Cell (WBC) Count 3.2 thou/uL (4.8-10.8)
[2017-08-07] MEDS: Enoxaparin Sodium 40 MG/0.4 ML SYRINGE SC SCH (09:49)
[2017-08-07] MEDS: Famotidine/PF 20 mg/2ml Vial SLOW IVP SCH ×2 (09:49→19:58)
[2017-08-07] MEDS: Famotidine 20 MG TAB PO SCH ×2 (09:49→19:58)
--- NOTE | 2017-08-07 17:00 | PRG ---
DATE OF SERVICE: 08/07/2017 SUBJECTIVE: The patient reports that he is feeling pretty good. The pain is well controlled. He de nies any nausea or vomiting. No flatus. He is hungry. He has been ambulating well. PHYSICAL EXAMINATION: VITAL SIGNS: Temperature 98.4, pulse is 106, blood pressure 151/75. GENERAL: He looks good in and he looks comfortable. LUNGS: Clear. ABDOMEN: Soft, nondistended. The incision has some mild serosanguineous drainage, especially where the rossana were tweaked and the dressing reapplied. LABORATORY DATA: His white count is 3.2, but he has been on chemo. H&H 13 and 39, platelet count of 238. Electrolytes, his sodium 134, chloride 108, CO2 of 20, creatinine 1.08, glucose 140. ASSESSMENT: Stable. PLAN: We will get his Tristan out, allow him to have sips of liquids. Continue ambulation.
[2017-08-07] MEDS ORDERED: Sodium Chloride 0.9% 500 ML IVPB SCH (21:30)
[2017-08-08] MEDS: Ketorolac Tromethamine 30 MG/ML VIAL IVP SCH ×4 (05:54→23:36)
[2017-08-08] MEDS: Sodium Chloride 0.9% 1,000 ML IV SCH (05:58)
[2017-08-08 06:19] LABS: Anion Gap 8 mmol/L (10-20); BUN (Urea Nitrogen) 12 mg/dL (8.4-25.7); Calc. Creatinine Clearance 77 mL/min (70-130); Calcium 8.2 mg/dL (7.8-10.44); Carbon Dioxide 23 mmol/L (23-31); Chloride 106 mmol/L (98-107); Estimated GFR-MDRD 88; Glucose 77 mg/dL (80-115); Potassium 3.9 mmol/L (3.5-5.1); Sodium 133 mmol/L (136-145)
[2017-08-08 06:50] LABS: Band 11 % (5-11); Eosinophils 6 % (0-10); Hemoglobin 11.4 g/dL (14.0-18.0); Lymphocytes 35 % (21-51); MDiff Complete? YES; Mean Corpuscular HGB CONC 34.8 g/dL (32.0-36.0); Mean Corpuscular Hemoglobin 33.7 pg (27.0-31.0); Mean Corpuscular Volume 96.9 fl (80.0-94.0); Mean Platelet Volume 6.7 fL (7.4-10.4); Monocytes 17 % (0-10); Neutrophil 31 % (42-75); PLT Morphology Comment Appears Adequate; Platelet Count 216 thou/uL (130-400); RBC Distribution Width 14.6 % (11.5-14.5); Red Blood Cell (RBC) Count 3.38 mill/uL (4.70-6.10); White Blood Cell (WBC) Count 5.5 thou/uL (4.8-10.8)
[2017-08-08] MEDS: diphenhydrAMINE 25 MG CAP PO PRN (07:07)
[2017-08-08] MEDS: Losartan 25 MG TAB PO SCH (08:43)
[2017-08-08] MEDS: Famotidine/PF 20 mg/2ml Vial SLOW IVP SCH ×2 (08:43→20:17)
[2017-08-08] MEDS: Famotidine 20 MG TAB PO SCH ×2 (08:43→20:11)
--- NOTE | 2017-08-08 09:17 | CON ---
DATE OF CONSULTATION: 08/08/2017 HISTORY OF PRESENT ILLNESS: This is a 72-year-old Latin-[place] male who is postop day #2, status p ost ileostomy reversal by Dr. Saba. Patient is doing well, ambulating. No complications thus far. He initially had a sigmoid colectomy in 04/2017 with an ileostomy placement. He has done well since then and was admitted for elective reversal. He is also diagnosed with a colon cancer and he is pre sently to follow up with Dr. Portillo for discussion over chemotherapy. PAST MEDICAL HISTORY: 1. History of hyponatremia secondary to excess alcohol intake. 2. Tobacco abuse, long history, quit several months ago. 3. Alcohol abuse. 4. Erectile dysfunction. 5. Hypertension. 6. History of prostatitis. PAST SURGICAL HISTORY: Include prostate biopsy negative 2014, exploratory lap sigmoid colectomy 04/[address] Saba, MediPort placement on 06/14/2017. FAMILY HISTORY: Father at 75 with heart disease. Mother at 89 of old age. He has two brothers, two sisters, one son and one daughter. SOCIAL HISTORY: Recently quit tobacco several months ago once they discovered the colon cancer. Alc ohol use, drinks excessive beer a time; however, he has cut down significantly. He is retired. He i s and remarried. He has 1 son and 1 daughter. He did work for [employer] x40 years. He cares for his grandkids. He is . x46 years. He also last six grandkids and four great SDI ndkids. MEDICATIONS: Simvastatin 40 every day, losartan 100 every day, Viagra 100 p.r.n. ALLERGIES: None. REVIEW OF SYSTEMS: As above. PHYSICAL EXAMINATION: VITAL SIGNS: Temperature 98.7, pulse 86, respirations 16, pulse oximetry 94, blood pressure 156/77. HEENT: Clear. HEART: Regular rate and rhythm. LUNGS: Clear. ABDOMEN: Soft with hyperactive bowel sounds. EXTREMITIES: With no edema. LABORATORY DATA: White count 5.5, H&H 11.4 and 32.8, platelets 216. Sodium 133, potassium 3.9, BUN is 12, creatinine 0.86, blood sugar is 77. ASSESSMENT: 1. Postop day #2 status post ileostomy reversal. 2. Status post sigmoid colectomy in 04/2017 for colon cancer. 3. Colon cancer. 4. History of hyponatremia due to excessive alcohol intake. 5. History of tobacco abuse, recently quit. 6. Hypertension. 7. Hyperlipidemia. PLAN: 1. Continue to increase activity. 2. Continue to monitor bowel sounds. 3. Hopefully, can advance diet today and hopefully discharge tomorrow. 4. We will resume losartan at 50 mg daily and continue his metoprolol that was started at 50 daily. We will continue to follow with Dr. Mir, will be covering starting tomorrow.
[2017-08-08] MEDS: Enoxaparin Sodium 40 MG/0.4 ML SYRINGE SC SCH (12:27)
[2017-08-09] MEDS: Ketorolac Tromethamine 30 MG/ML VIAL IVP SCH ×2 (05:10→13:05)
[2017-08-09] MEDS: Famotidine 20 MG TAB PO SCH ×2 (09:17→20:00)
[2017-08-09] MEDS: Enoxaparin Sodium 40 MG/0.4 ML SYRINGE SC SCH (09:17)
[2017-08-09] MEDS: Losartan 25 MG TAB PO SCH (09:18)
[2017-08-09] MEDS: Famotidine/PF 20 mg/2ml Vial SLOW IVP SCH ×2 (09:18→19:59)
[2017-08-09] MEDS: diphenhydrAMINE 25 MG CAP PO PRN (09:24)
[2017-08-09] MEDS ORDERED: Morphine 4 MG/ML VIAL SLOW IVP PRN (10:29)
[2017-08-09] MEDS ORDERED: HYDROcodone/Acetaminophen 10/325 mg Tablet PO PRN ×2 (10:29)
[2017-08-09] MEDS ORDERED: DC PCA Order Set 1 EACH FS ONE (10:29)
[2017-08-10] MEDS: Enoxaparin Sodium 40 MG/0.4 ML SYRINGE SC SCH (08:08)
[2017-08-10] MEDS: Losartan 25 MG TAB PO SCH (08:09)
[2017-08-10] MEDS: diphenhydrAMINE 25 MG CAP PO PRN (08:09)
[2017-08-10] MEDS: Famotidine 20 MG TAB PO SCH (08:09)
[2017-08-10] MEDS: Famotidine/PF 20 mg/2ml Vial SLOW IVP SCH (08:10)
--- NOTE | 2017-08-10 10:04 | DIS ---
DATE OF ADMISSION: 08/06/2017 DATE OF DISCHARGE: 08/10/2017 DISCHARGE DIAGNOSIS: Unwanted colostomy. PROCEDURES DURING ADMISSION: Colostomy takedown. HOSPITAL COURSE: The patient was admitted, taken to the operating room where he underwent open colos kacey reversal. Postoperatively, he has done well. His bowel function returned. He is passing flatu s and bowel movements. He is tolerating soft foods. He is discharged home on hydrocodone and Zofran . He will follow up with me in next week for staple removal.
[2017-08-10 12:29] VITALS: TEMP 98.3
[2017-08-10] MEDS ORDERED: hydrALAZINE 25 MG TAB PO SCH (13:00)
[2017-08-10 13:47] VITALS: BP 156/83
== END 2017-08-10 15:40 | disposition home or self-care (01) | DRG 330 ==
LOC: SURG A 08-06 05:47 → SURG B 08-06 11:17
PROVIDERS: ADMIT Surgery; ATTEND Surgery
PROC: 0DQM0ZZ Repair Descending Colon, Open Approach (ICD-10-PCS; principal; 2017-08-06)
PROC: 0DQP0ZZ Repair Rectum, Open Approach (ICD-10-PCS; 2017-08-06)
DX: Z43.3 Encounter for attention to colostomy (principal); C18.9 Malignant neoplasm of colon, unspecified; E87.1 Hypo-osmolality and hyponatremia; F17.201 Nicotine dependence, unspecified, in remission; E78.5 Hyperlipidemia, unspecified; Z72.89 Other problems related to lifestyle
CPT/HCPCS: 36415; 36416; 80048; 85025; 88304; 93005; 93010; J0131; J0360; J0694; J1650; J1885; J2001; J2405; J2550; J2704; J3010; J7050; S0028

== ENCOUNTER 2017-07-30 10:05 | Outpatient (CLI) | payer MEDICARE ==
[2017-07-30 10:53] VITALS: BMI 25.1
[2017-07-30 12:37] LABS: Hemoglobin A1c 6.1 % (4.0-6.0)
--- NOTE | 2017-07-30 23:50 | EKG ---
Test Reason : Blood Pressure : / mmHG Vent. Rate : 069 BPM Atrial Rate : 069 BPM P-R Int : 156 ms QRS Dur : 086 ms QT Int : 390 ms P-R-T Axes : 018 008 -08 degrees QTc Int : 417 ms Normal sinus rhythm Possible Inferior infarct , age undetermined Abnormal ECG When compared with ECG of 12-JUN-2017 09:22, Borderline criteria for Inferior infarct are now Present Confirmed by HASMUKH REGALADO, DR. Cooper ([id number]) on 07/30/2017 11:50:09 PM Referred By: KATHY Confirmed By:DR. Kenneth NOE MD
== END 2017-07-30 10:06 | disposition home or self-care (01) ==
LOC: LABBT 10:05
PROVIDERS: ATTEND Surgery
DX: Z01.818 Encounter for other preprocedural examination (principal); Z93.3 Colostomy status; R94.31 Abnormal electrocardiogram [ECG] [EKG]
CPT/HCPCS: 83036; 93005; 93010

== ENCOUNTER 2018-05-21 11:33 | Outpatient (CLI) | payer MEDICARE ==
--- NOTE | 2018-05-21 12:14 | RAD ---
RIGHT HAND THREE VIEWS: HISTORY: Right hand pain and swelling. FINDINGS: The bones appear mildly demineralized. There is some joint space narrowing at the 2nd and 3rd metaca rpophalangeal joints. The phalanges also appear minimally subluxed. I do not see any gross erosive, destructive bony change. There is radial carpal joint space narrowing. There is some borderline wi dening to the scapholunate joint, raising the possibility of an underlying scapholunate ligament inju ry. IMPRESSION: 1. Mild bony demineralization. 2. Joint space narrowing at the 2nd and 3rd metacarpophalangeal joints without any bony erosive or d estructive change. 3. Mild radial carpal joint space narrowing, particularly between the lunate and radius. Slightly p rominent scapholunate joint. The possibility of an underlying scapholunate ligament injury is not to tally excluded. Clinical correlation and MRI may be helpful in assessment. POS: [facility]
== END 2018-05-21 11:34 | disposition home or self-care (01) ==
LOC: BICRAD 11:33
PROVIDERS: ATTEND Family Medicine
DX: M79.89 Other specified soft tissue disorders (principal); M25.841 Other specified joint disorders, right hand; M25.831 Other specified joint disorders, right wrist

== ENCOUNTER 2019-11-19 13:32 | Outpatient (CLI) | payer MEDICARE ==
[2019-11-19] MEDS ORDERED: Iopamidol 370 76% 100 ML VIAL ONE (14:22)
--- NOTE | 2019-11-19 14:57 | CT ---
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 Ris ing CEA COMPARISON: CT the abdomen and pelvis with contrast dated May 08, 2017 FINDINGS: ABDOMEN: Lung bases: There is a 1.5 cm soft tissue pulmonary nodule in the lingula that was not definitely see n on the comparison examination. Right lung bases clear. Liver: There is been development of fatty infiltration of the liver. Gallbladder: Small gallstone is seen within the gallbladder neck. Pancreas: Normal. Adrenal glands: Normal. Spleen: Normal. Kidneys and ureters: Normal. No hydronephrosis. Vasculature: There are moderate vascular calcifications seen involving the visualized vasculature. Lymph nodes:No lymphadenopathy. Free fluid in abdomen:No free fluid is evident. PELVIS: Small and large bowel: Normal Appendix:Normal Bladder: Normal. Rectal and perirectal soft tissues:Normal. Reproductive structures: Prostate enlargement measuring 5.2 cm Free fluid in pelvis: No free fluid is evident. Lymphadenopathy pelvis: No lymphadenopathy is evident. Osseous structures: No acute osseous abnormality. No destructive osteolytic or osteoblastic lesion i s identified. There is scattered degenerative and osteoarthritic changes. Soft tissues:Normal. IMPRESSION: 1. New 1.5 cm lingular pulmonary nodule. Recommend CT of the thorax for evaluation for additional pul monary nodules. 2. New fatty infiltration of the liver. 3. Cholelithiasis 4. No suspicious abnormalities suggest metastatic disease in the abdomen or pelvis. 5. Prostate enlargement
== END 2019-11-19 13:33 | disposition home or self-care (01) ==
LOC: BICCT 13:32
PROVIDERS: ATTEND Internal Medicine Hematology & Oncology
DX: C18.7 Malignant neoplasm of sigmoid colon (principal); R97.0 Elevated carcinoembryonic antigen [CEA]; K76.0 Fatty (change of) liver, not elsewhere classified; R91.1 Solitary pulmonary nodule; N40.0 Benign prostatic hyperplasia without lower urinary tract symptoms; K80.20 Calculus of gallbladder without cholecystitis without obstruction
CPT/HCPCS: 74177; 82565; Q9967

== ENCOUNTER 2019-12-03 12:41 | Outpatient (CLI) | payer MEDICARE ==
[~2019-12-03 12:41] MED LIST changes: -ISOVUE-370 76%-LOCM 1 ML ONE; +Iopamidol-370 76% 500 ML 1 ML ONE
--- NOTE | 2019-12-03 13:38 | CT ---
CT OF THE THORAX WITH IV CONTRAST: 12/03/19 HISTORY: Pulmonary nodule incidentally noted on CT abdomen and pelvis dated 11/19/19. FINDINGS: There is a 1.5 cm soft tissue pulmonary nodule in the lingula with slightly irregular margins. There is mild paraseptal emphysema. No additional suspicious pulmonary nodules evident. There are areas of passive atelectasis involving both lower lobes. There is fluid density in the esophagus. No enlarged lymph nodes are evident. Coron bianca artery and thoracic aortic calcifications. There is a small hiatal hernia. Adrenal glands are nor mal appearing. The visualized upper abdomen demonstrates fatty liver and cholelithiasis. No definite acute osseous abnormality is evident. There are healed fracture deformities involving the posterior 6th and 7th ribs. There is a left subclavian chest wall port. IMPRESSION: 1. Irregular 1.5 cm lingula pulmonary nodule suspicious for malignancy/metastatic disease. Furth er evaluation with PET scan is recommended. 2. Fluid density in the esophagus may reflect reflux or dysmotility. There is a small hiatal her john. 3. Fatty liver with cholelithiasis. 4. There are healed fracture deformity along the right posterior 6th and 7th ribs. POS: [facility]
== END 2019-12-03 12:42 | disposition home or self-care (01) ==
LOC: BICCT 12:41
PROVIDERS: ATTEND Internal Medicine Hematology & Oncology
DX: C18.7 Malignant neoplasm of sigmoid colon (principal); R91.1 Solitary pulmonary nodule; K44.9 Diaphragmatic hernia without obstruction or gangrene; K76.0 Fatty (change of) liver, not elsewhere classified; K80.20 Calculus of gallbladder without cholecystitis without obstruction; M95.4 Acquired deformity of chest and rib
CPT/HCPCS: 71260; Q9967

== ENCOUNTER 2019-12-24 08:12 | Outpatient (CLI) | payer MEDICARE ==
--- NOTE | 2019-12-24 14:01 | PET ---
PET CT: 12/24/19 HISTORY: 74-year-old male with malignant neoplasm of sigmoid colon. Rising CEA. Solitary pulmonary nodule. TECHNIQUE: PET scan with CT attenuation correction was performed from the base of the brain through the proximal thighs following the intravenous administration of 13 millicuries 15-fluorodeoxyglucose in the left antecubital fossa. COMPARISON: None. CORRELATION: CT chest dated 12/03/[address] abdomen and pelvis dated 11/19/19. No mary carmen hypermetabolism is seen in the neck, chest, axilla, abdomen or pelvis. There is a hypermetabolic 1.5 cm nodule in the lingula with an SUV of 5. No other hypermetabolic pulm onary nodules are seen. No hypermetabolic liver, adrenal or skeletal lesions are identified. There is physiologic activity in the GI and tract and the visualized portions of the brain. The CT scan used for attenuation correct demonstrates no evidence of pleural effusions or ascites. Th ere is fatty liver with cholelithiasis and prostatic enlargement. IMPRESSION: Findings suspicious for left lung malignancy/metastatic disease. POS: [facility]
== END 2019-12-24 08:13 | disposition home or self-care (01) ==
LOC: PET 08:12
PROVIDERS: ATTEND Internal Medicine Hematology & Oncology
DX: C18.9 Malignant neoplasm of colon, unspecified (principal); R91.1 Solitary pulmonary nodule
CPT/HCPCS: 78815; A9552

== ENCOUNTER 2020-05-04 09:34 | Outpatient (CLI) | payer MEDICARE ==
--- NOTE | 2020-05-04 10:22 | RAD ---
LEFT KNEE 2 VIEWS: HISTORY: Left knee pain. FINDINGS/IMPRESSION: No fracture, dislocation, or bone destruction is seen. No significant osteophytosis is noted. NO paxton int effusion is seen. POS: OFF
== END 2020-05-04 09:35 | disposition home or self-care (01) ==
LOC: BICRAD 09:34
PROVIDERS: ATTEND Family Medicine
DX: M25.562 Pain in left knee (principal)

== ENCOUNTER 2022-06-25 10:53 | Observation (INO) | payer MEDICARE ==
[2022-06-25] MEDS ORDERED: Iopamidol-370 76% 500 ML MDV (1 ML CHARGE) ONE (11:07)
[2022-06-25 11:27] LABS: #Eosinphils 0.1 thou/uL (0.0-0.7); #Lymphocytes 2.8 thou/uL (1.20-3.40); #Monocytes 0.6 thou/uL (0.11-0.59); #Neutrophils 5.2 thou/uL (1.40-6.50); %Basophils 0.4 % (0.0-1.0); %Eosinophils 1.2 % (0.0-10.0); %Monocytes 6.8 % (0.0-10.0); %Neutrophils 59.7 % (42.0-75.0); Mean Corpuscular HGB CONC 34.9 g/dL (32.0-36.0); Mean Corpuscular Hemoglobin 32.9 pg (27.0-31.0); Mean Corpuscular Volume 94.2 fl (78.0-98.0); Mean Platelet Volume 7.1 fL (7.4-10.4); Platelet Count 269 10x3/uL (130-400); RBC Distribution Width 12.2 % (11.5-14.5); Red Blood Cell (RBC) Count 4.86 mill/uL (4.70-6.10); White Blood Cell (WBC) Count 8.7 10x3/uL (4.8-10.8)
[2022-06-25 11:36] LABS: INR-International Normal Ratio 0.9; PTT 32.8 sec (22.9-36.1); Prothrombin Time 12.9 sec (12.0-14.7)
[2022-06-25 11:45] LABS: ALT (SGPT) 25 U/L (8-55); AST (SGOT) 21 U/L (5-34); Albumin 4.6 g/dL (3.4-4.8); Alkaline Phosphatase 49 U/L (40-110); Anion Gap 17 mmol/L (10-20); BUN (Urea Nitrogen) 11 mg/dL (8.4-25.7); Bilirubin, Total 0.4 mg/dL (0.2-1.2); Calc. Creatinine Clearance 0 mL/min (70-130); Calcium 9.4 mg/dL (7.8-10.44); Carbon Dioxide 21 mmol/L (23-31); Chloride 99 mmol/L (98-107); Estimated GFR 60; Globulin 3.2 g/dL (2.4-3.5); Glucose 114 mg/dL (83-110); Potassium 4.7 mmol/L (3.5-5.1); Protein, Total 7.8 g/dL (5.8-8.1); Sodium 132 mmol/L (136-145)
[2022-06-25] MEDS ORDERED: valACYclovir 500 MG TAB PO SCH (12:30)
[2022-06-25] MEDS ORDERED: predniSONE 20 MG TAB ONE (12:47)
[2022-06-25] MEDS ORDERED: Aspirin Chewable 81 MG TAB ONE ×2 (13:18→13:19)
[2022-06-25 14:39] LABS: Troponin I Less than 0.010 ng/mL (< 0.028)
[2022-06-25 17:59] LABS: Troponin I Less than 0.010 ng/mL (< 0.028)
[2022-06-25 18:02] VITALS: BMI 28.0
[2022-06-25] MEDS: valACYclovir 500 MG TAB PO SCH (20:56)
[2022-06-25] MEDS ORDERED: Atorvastatin Calcium 40 MG TAB PO SCH (21:00)
[2022-06-26 05:55] LABS: Cardiac Risk 3.8 (Less than 4.5)
[2022-06-26 07:40] VITALS: TEMP 97.3
[2022-06-26] MEDS ORDERED: predniSONE 20 MG TAB PO SCH (08:00)
[2022-06-26] MEDS ORDERED: Aspirin 81 mg Enteric Coated Tablet PO SCH (09:00)
[2022-06-26] MEDS ORDERED: Losartan 25 MG TAB PO SCH (09:00)
[2022-06-26] MEDS: valACYclovir 500 MG TAB PO SCH (09:02)
[2022-06-26 11:42] VITALS: BP 137/77
== END 2022-06-26 14:45 | disposition home or self-care (01) ==
LOC: ERS 10:53 → NEURO 16:49
PROVIDERS: ADMIT Hospitalist; ATTEND Hospitalist
DX: G51.0 Bell's palsy (principal); I10 Essential (primary) hypertension; E78.5 Hyperlipidemia, unspecified; R73.03 Prediabetes; Z85.038 Personal history of other malignant neoplasm of large intestine; Z87.891 Personal history of nicotine dependence; Z79.82 Long term (current) use of aspirin; Z79.84 Long term (current) use of oral hypoglycemic drugs; Z79.899 Other long term (current) drug therapy; Z90.49 Acquired absence of other specified parts of digestive tract
CPT/HCPCS: 70450; 70496; 70498; 70551; 71045; 80053; 80061; 82962; 84484 ×2; 85025; 85610; 85730; 93005; 96372; 99285; G0378 ×3; 36415; 36416; J1650; J7512; Q9967

== ENCOUNTER 2023-06-04 09:28 | Outpatient (CLI) | payer MEDICARE ==
[2023-06-04] MEDS ORDERED: Iopamidol 370 76% 100 ML VIAL ONE (14:27)
== END 2023-06-04 09:29 | disposition home or self-care (01) ==
LOC: BICCT 09:28
PROVIDERS: ATTEND Internal Medicine Hematology & Oncology
DX: C18.7 Malignant neoplasm of sigmoid colon (principal); R97.0 Elevated carcinoembryonic antigen [CEA]; R91.1 Solitary pulmonary nodule; R91.8 Other nonspecific abnormal finding of lung field; K80.20 Calculus of gallbladder without cholecystitis without obstruction; K40.90 Unilateral inguinal hernia, without obstruction or gangrene, not specified as recurrent
CPT/HCPCS: 71260; 74177; 82565; Q9967

== ENCOUNTER 2023-12-12 09:00 | Outpatient (CLI) | payer MEDICARE ==
[2023-12-12] MEDS ORDERED: Iopamidol 370 76% 100 ML VIAL ONE (12:05)
== END 2023-12-12 09:01 | disposition home or self-care (01) ==
LOC: BICCT 09:00
PROVIDERS: ATTEND Radiology Radiation Oncology
DX: C34.91 Malignant neoplasm of unspecified part of right bronchus or lung (principal); J98.4 Other disorders of lung; J18.1 Lobar pneumonia, unspecified organism; J47.9 Bronchiectasis, uncomplicated
CPT/HCPCS: 36415; 71260; 82565; Q9967

== ENCOUNTER 2024-10-15 08:42 | Outpatient (CLI) | payer MEDICARE ==
[2024-10-15 09:39] LABS: Estimated GFR - POC 52.0
== END 2024-10-15 08:43 | disposition home or self-care (01) ==
LOC: CT 08:42
PROVIDERS: ATTEND Radiology Radiation Oncology
DX: C78.01 Secondary malignant neoplasm of right lung (principal); R59.0 Localized enlarged lymph nodes
CPT/HCPCS: 36415; 71260; 82565

== ENCOUNTER 2024-11-12 09:30 | Outpatient (CLI) | payer MEDICARE | END 2024-11-12 09:31 | disposition home or self-care (01) | LOC: PET 09:30 | PROVIDERS: ATTEND Radiology Radiation Oncology | DX: C18.7 Malignant neoplasm of sigmoid colon (principal); C78.01 Secondary malignant neoplasm of right lung; R91.8 Other nonspecific abnormal finding of lung field | CPT/HCPCS: 78815; A9552 ==

== ENCOUNTER 2024-12-09 09:15 | Outpatient (CLI) | payer MEDICARE ==
[2024-12-09 10:31] LABS: #Basophils 0.04 10x3/uL (0.0-0.2); #Eosinophils 0.15 10x3/uL (0.0-0.7); #Monocytes 0.68 10x3/uL (0.11-0.59); #Neutrophils 5.91 10x3/uL (1.40-6.50); %Basophils 0.5 % (0.0-1.0); %Eosinophils 1.7 % (0.0-10.0); %Lymphocytes 23.0 % (21.0-51.0); %Monocytes 7.7 % (0.0-10.0); %Neutrophils 66.9 % (42.0-75.0); Hematocrit 43.8 % (42.0-52.0); Hemoglobin 15.0 g/dL (14.0-18.0); Mean Corpuscular Hemoglobin 31.6 pg (27.0-31.0); Mean Corpuscular Volume 92.4 fL (78.0-98.0); Platelet Count 254 10x3/uL (130-400); Red Blood Cell (RBC) Count 4.74 mill/uL (4.70-6.10); White Blood Cell (WBC) Count 8.83 10x3/uL (4.8-10.8)
[2024-12-09 10:56] LABS: Anion Gap 12 mmol/L (10-20); BUN (Urea Nitrogen) 12 mg/dL (8.4-25.7); Calc. Creatinine Clearance 0 mL/min (70-130); Calcium 9.3 mg/dL (7.8-10.44); Carbon Dioxide 24 mmol/L (23-31); Chloride 103 mmol/L (98-107); Glucose 112 mg/dL (83-110); Potassium 4.9 mmol/L (3.5-5.1); Sodium 134 mmol/L (136-145)
== END 2024-12-09 09:16 | disposition home or self-care (01) ==
LOC: LABBT 09:15
PROVIDERS: ATTEND Student in an Organized Health Care Education/Training Program
DX: Z01.818 Encounter for other preprocedural examination (principal); C34.11 Malignant neoplasm of upper lobe, right bronchus or lung
CPT/HCPCS: 71046; 80048; 85025; 93005; 93010

== ENCOUNTER 2024-12-10 11:21 | Day surgery (SDC) | payer MEDICARE ==
[2024-12-09 09:36] VITALS: BMI 27.9
[2024-12-10] MEDS ORDERED: fentaNYL PF 100 MCG/2 ML SYRINGE ONE (14:03)
[2024-12-10] MEDS ORDERED: PROPOFOL 20 ML ONE (14:03)
[2024-12-10] MEDS ORDERED: Rocuronium Bromide 10 MG/ML (10ML VIAL) ONE (14:04)
[2024-12-10] MEDS ORDERED: Ondansetron PF 4 MG/2 ML Vial ONE (14:04)
[2024-12-10] MEDS ORDERED: Lidocaine 1% PF 5 ML VIAL ONE (14:04)
[2024-12-10] MEDS ORDERED: PHENYLEPHRINE-NS 100 MCG/ML 10 ML SYRINGE ONE (15:00)
[2024-12-10] MEDS ORDERED: SUGAMMADEX SODIUM 200 MG/2 ML VIAL ONE (15:08)
== END 2024-12-10 16:38 | disposition home or self-care (01) ==
LOC: SDC 11:21
PROVIDERS: ATTEND Student in an Organized Health Care Education/Training Program
PROC: 07B74ZX Excision of Thorax Lymphatic, Percutaneous Endoscopic Approach, Diagnostic (ICD-10-PCS; principal; 2024-12-10)
DX: C77.1 Secondary and unspecified malignant neoplasm of intrathoracic lymph nodes (principal); C34.11 Malignant neoplasm of upper lobe, right bronchus or lung; C18.7 Malignant neoplasm of sigmoid colon; I10 Essential (primary) hypertension; E11.9 Type 2 diabetes mellitus without complications; E78.5 Hyperlipidemia, unspecified; Z87.891 Personal history of nicotine dependence; Z90.49 Acquired absence of other specified parts of digestive tract; Z88.1 Allergy status to other antibiotic agents; Z79.82 Long term (current) use of aspirin; Z79.84 Long term (current) use of oral hypoglycemic drugs; Z79.899 Other long term (current) drug therapy
CPT/HCPCS: 39402; J0169; J0665; J1100; J2704; J3490; 88305; 88341; 88342

== ENCOUNTER 2024-12-24 10:16 | Outpatient (CLI) | payer MEDICARE | END 2024-12-24 10:17 | disposition home or self-care (01) | LOC: RAD 10:16 | PROVIDERS: ATTEND Student in an Organized Health Care Education/Training Program | DX: C34.11 Malignant neoplasm of upper lobe, right bronchus or lung (principal) | CPT/HCPCS: 71046 ==